=== PATIENT | male | born 1995 | race Hispanic/Latino ===

== ENCOUNTER 2024-10-16 16:42 | Emergency (ER) | payer SELFPAY ==
[2024-10-16] MEDS ORDERED: Lidocaine 1% w/Epinephrine 1:100K 20 ML VIAL ONE (16:57)
[2024-10-16] MEDS ORDERED: CEFAZOLIN 2 GM VIAL ONE (16:57)
[2024-10-16] MEDS ORDERED: Lidocaine 1% MPF 2 ML VIAL ONE ×2 (16:59→17:02)
== END 2024-10-16 18:09 | disposition home or self-care (01) ==
LOC: ERS 16:42
DX: S71.111A Laceration without foreign body, right thigh, initial encounter (principal); W26.8XXA Contact with other sharp object(s), not elsewhere classified, initial encounter
CPT/HCPCS: 12032; 96372; 99282